=== PATIENT | female | born 1995 | race American Indian/Alaskan Native ===

== ENCOUNTER 2024-08-03 09:29 | Outpatient (REF) | payer MEDICAID, SELFPAY ==
--- OUTSIDE RECORDS SUMMARY | 2024-08-03 10:24 | XMS_ITS | Encounter Summary ---
Author Organization [employer] Address [address] [facility] [address] [place] [address] Care Team Providers Care Ophthalmic Aide Name Role Phone Omar Boyle MD Primary Care Prov ider Reason for Visit * Reason Onset Date Comments Appointment Request 06/14/2024 Encounter Details Date Type Department Care Team ([facility] st Contact Info) Description 06/14/2024 Telephone [facility] [address] [place] [address] Omar Boyle MD [address] [place] [address] Appointment Request Social History Tobacco Use Types Packs/Day Years Used Date Smoking Tobacco: Never Smokeless Tobacco: Never Alcohol Use Standard Drinks/Week Comments Never 0 (1 standard drink = 0.6 oz pur e alcohol) Depression Answer Date Recorded Patient Health Questionnaire-9 Score 1 05/19/2024 Patient Health Questionnaire-9 Score 1 05/19/2024 Last PHQ-9: Questionnaire Data Not on file 0 05/19/2024 Housing Stability Answer Date Recorded What is your housing situation today? I have espinoza chase 05/19/[address] you li ve. Do you have problems with any of the following? None of the above 05/19/2024 Food Insecurity Answer Date Recorded Within the past 12 months, y ou worried that your food would run out before you got money to buy more: Never True 05/19/2024 Within the past 12 months,th e food you bought just didn't last and you didn't have enough money to get more: Never True Transportation Answer Date Recorded In the past 12 months, has l ack of transportation kept you from medical appts, meetings, work or from getting things needed for daily living? No 05/19/2024 Utilities Answer Date Recorded In the past 12 months, has t he electric, gas, oil or water company threatened to shut off services in your home? No 05/19/2024 Depression Answer Date Recorded Patient Health Questionnaire-2 Score 0 05/19/2024 Internet Access Answer Date Recorded Internet Access Q1 Yes 05/19/2024 Internet Access Q2 Not on file 05/19/2024 Comments Unknown Sex and Gender Information Value Date Recorded Sex Assigned at Female 05/05/2024 3:49 PM EST Legal Sex Female 3:48 PM EST Gender Identity Female 05/05/2024 3:49 PM EST Sexual Orientation Don't know 05/19/2024 11 :54 AM EST documented as of this encounter Miscellaneous Notes * Telephone Encounter - Stephanie Reilly - 06/14/2024 10:00 AM EDT Tc from pt requesting appointment for PAP-SMEAR and request of medication for contraceptive pills. Please return call [phone] (equatorial guinean) documented in this encounter Plan of Treatment Upcoming Encounters Date Type Department Care Team (Late st Contact Info) Description 09/02/2024 2:30 PM EDT Office Visit [facility] [address] [place] [address] TarStacie levine, OD [address] [place] [address] documented as of this encounter Visit Diagnoses Not on filedocumented in this encounter Additional Health Concerns Assessment Noted Time PHQ-9 Depression Total Score: 1 05/19/19 1:57 PM EST documented as of this encounter Care Teams Ophthalmic Aide Relationship Specialty Start Date End Date Omar Boyle MD [address] [place] [address] PCP - General Internal Medicine 06/03/24 documented as of this encounter
--- OUTSIDE RECORDS SUMMARY | 2024-08-03 10:24 | XMS_ITS | Clinical Summary ---
Author Organization [employer] Address [address] [facility] [address] [place] [address] Care Team Providers Care Lawyer Criminal Name Role Phone Omar Boyle MD Primary Care Prov ider Allergies Active Allergy Reactions Criticality Noted Date Comments Penicillin G Rash Low 05/19/2024 Medications Ketotifen Fumarate 0.035 % solution Administer 1 drop into affected eye(s) 2 times daily. 10 mL 1 Active norgestimate-et hinyl estradiol (Estarylla) 0.25-35 MG-MCG tablet Take 1 tablet by mouth Once per day. 28 tablet 12 5 06/18/19 26 Active Active Problems Problem Noted Date Diagnosed Date Breast pain, right 07/19/2024 Assessment & Plan (07/19/2024 1:27 PM EDT): Will order a breast imaging, call with results Physical exam 07/19/2024 Assessment & Plan (07/19/2024 7:18 PM EDT): Unremarkable physical examination, patient complained of rigtht breast pain, will order a ultrasound, no nipple inversion or discharge Encounter for surveillance of contraceptive pill s 06/17/2024 Assessment & Plan (06/17/2024 11:30 AM EDT): Patient has been on OCP for over a year, wants to continue no major side effects reported, risk vs benefits discussed, will send rx Encounter for medical examination to establish c are 05/19/2024 Assessment & Plan (05/19/2024 2:56 PM EST): Last pcp visit September 2023 [place] [facility]: gastroenteritis may 2023 Hospitalization: - Pmhx: - Pshx: - All: Pnc Meds: OCP [id number] Menarche: 10yrs LMP: 04/04/24 Encounters Date Type Department Care Team Description 07/19/2024 1:00 PM EDT Office Visit [facility] [address] [place] [address] Omar Boyle MD Encounter for medical examination to establish care (Primary Dx); Breast pain, right; Physical exam 07/19/2024 Travel 07/08/2024 Patient Outreach [address] [address] Omar Boyle MD Pre-visit Planning (Pre visit planning unable to LVM ) 06/17/2024 11:15 AM EDT Office Visit [facility] [address] [place] [address] Omar Boyle MD Encounter for surveillance of contraceptive pills (Primary Dx) 06/17/2024 Travel 06/14/2024 Telephone [facility] [address] [place] [address] Omar Boyle MD Medication Question; Appointment Request 06/14/2024 Telephone [facility] [address] [place] [phone] Omar Boyle MD Appointment Request 06/03/2024 Telephone [facility] [address] [place] [address] Omar Boyle MD 05/19/2024 2:45 PM EST Telemedicine [facility] [address] [place] [address] Omar Boyle MD Encounter for medical examination to establish care (Primary Dx); Eye exam, routine 05/19/2024 Travel from Last 3 Months Family History Medical History Relation Name Comments No Known Problems Father Alzheimer's disease Mother Cancer Neg Hx Relation Name Status Comments Father Mother Social History Tobacco Use Types Packs/Day Years Used Date Smoking Tobacco: Never Smokeless Tobacco: Never Tobacco Cessation:Counseling Given: Not Answered Alcohol Use Standard Drinks/Week Comments Never 0 (1 standard drink = 0.6 oz pur e alcohol) Depression Answer Date Recorded Patient Health Questionnaire-9 Score 9 07/19/2024 Patient Health Questionnaire-9 Score 9 07/19/2024 Last PHQ-9: Questionnaire Data Not on file 0 07/19/2024 Housing Stability Answer Date Recorded What is [...] Answer Date Recorded Patient Health Questionnaire-2 Score 3 07/19/2024 Internet Access Answer Date Recorded Internet Access Q1 Yes 05/19/2024 Internet Access Q2 Not on file 05/19/2024 Comments Unknown Sex and Gender Information Value Date Recorded Sex Assigned at Female 05/05/2024 3:49 PM EST Legal Sex Female 3:48 PM EST Gender Identity Female 05/05/2024 3:49 PM EST Sexual Orientation Don't know 05/19/2024 11 :54 AM EST Last Filed Vital Signs Vital Sign Reading Time Taken Comments Blood Pressure 106/62 07/19/2024 12:59 PM EDT Pulse 78 07/19/2024 12:59 PM EDT Temperature 36.4 ??C (97.6 ??F) 07/19/2024 12:59 PM E DT Respiratory Rate 07/19/2024 12:59 PM EDT Oxygen Saturation 98% 07/19/2024 12:59 PM EDT Inhaled Oxygen Concentration - - Weight 71.8 kg (158 lb 3.2 oz) 07/19/2024 12:59 PM EDT Height 147.3 cm (4' 10 ) 07/19/2024 12:59 PM EDT Body Mass Index 33.06 07/19/2024 12:59 PM EDT Plan of Treatment Upcoming Encounters Date Type Department Care Team ([facility] st Contact Info) Description 09/02/2024 2:30 PM EDT Office Visit [facility] [address] [place] [address] Stacie Walker, OD [address] [place] [address] Health Maintenance Due Date Last Done Comments HIV Screening 1993 Family Planning (PISQ) 2008 Hepatitis C Screening 07/16/2011 DTaP/Tdap/Td Vaccines (1 - Tdap) 2012 Hepatitis B Vaccines (1 of 3 - 19+ 3-dose series) 2012 Pap Smear 2014 Cervical Cancer Screening 07/16/2023 HPV/Cotest 07/16/2023 COVID-19 Vaccine (1 - 2023-2 5 season) 2023 Influenza Vaccine (#1) 2023 SDOH Screening 05/19/2025 05/19/2024 Tobacco Screening 05/19/2025 05/19/2024 Alcohol/Substance Use Screening 07/19/2025 07/19/2024 Depression Screening 07/19/2025 07/19/2024, 07/19/2024 Zoster Vaccines (1 of 2) 07/16/2043 RSV Patients and Patients Aged 60 years or older (1 - 1-dose 75+ series) 2068 HIB Vaccines Aged Out No longer eligi ble based on patient's age to complete this topic HPV Vaccines Aged Out No longer eligi ble based on patient's age to complete this topic Hepatitis A Vaccines Aged Out No long er eligible based on patient's age to complete this topic IPV Vaccines Aged Out No longer eligi ble based on patient's age to complete this topic Meningococcal Vaccine Aged Out No jose manuel clementine eligible based on patient's age to complete this topic Pneumococcal Vaccine: Pediatrics (0 to 5 Years) and At-Risk Patients (6 to 49) Years) Aged Out No longer eligible b ased on patient's age to complete this topic RSV under 20 months Aged Out No longe r eligible based on patient's age to complete this topic Rotavirus Vaccines Aged Out No longer eligible based on patient's age to complete this topic [place] [address] LIMITED HS FULL Care Teams Lawyer Criminal Relationship Specialty Start Date End Date Omar Boyle MD [address] [place] [phone] PCP - General Internal Medicine 06/03/24
[2024-08-03 14:14] LABS: MANUAL DIFF FLAG NO
[2024-08-03 14:21] LABS: Basophils Percent Auto 0.3 % (0-2); Eosinophils Absolute Auto 0.2 X10*3/uL (0.0-0.4); Eosinophils Percent Auto 3.5 % (0-4); Hematocrit 37.2 % (37.0-47.0); Imm Gran Abs Auto 0.02 X10*3/uL (0.00-0.03); Imm Gran Pct Auto 0.3 % (0.0-0.4); Lymphocytes Absolute Auto 2.5 X10*3/uL (1.2-4.9); Lymphocytes Percent Auto 36.8 % (20-40); Mean Corpuscular HGB Conc 34.9 g/dl (31.0-35.0); Mean Corpuscular Hemoglobin 31.9 pg (27.0-33.0); Mean Corpuscular Volume 91.2 fL (80.0-98.0); Mean Platelet Volume 11.6 fL (9.4-12.3); Monocytes Absolute Auto 0.5 X10*3/uL (0.1-1.2); Monocytes Percent Auto 6.7 % (2-11); Neutrophils Absolute Auto 3.6 x10*3/uL (2.0-8.3); Neutrophils Percent Auto 52.4 % (45-73); Platelet Count 251 X10*3/uL (160-400); Red Blood Count 4.08 X10*6/uL (4.20-5.50); Red Cell Distribution Width 12.5 % (11.0-16.0); White Blood Count 6.8 X10*3/uL (4.8-10.8)
[2024-08-03 14:33] LABS: Estimated Average Glucose 100 mg/dL; Hemoglobin A1C 110.7311 umol/L; Hemoglobin A1c % 5.1 % (<6.0); Total Hemoglobin (HGBA1C) 3434.0532 umol/L
[2024-08-03 14:37] LABS: Alanine Aminotransferase 30 U/L (0-31); Albumin Level 4.2 g/dL (3.5-5.0); Alkaline Phosphatase 65 U/L (39-117); Anion Gap 11 (12-20); Aspartate Amino Transferase 43 U/L (5-31); Bilirubin Total 1.2 mg/dL (0.0-1.0); Blood Urea Nitrogen 13 mg/dL (9-16); Calcium 9.2 mg/dL (8.4-10.2); Carbon Dioxide 24 mmol/L (22-29); Chloride 108 mmol/L (96-108); Cholesterol 183 mg/dL (<200); Estimated Glomerular Filt Rate > 60; Glucose Random 80 mg/dL (60-115); HDL Cholesterol 45 mg/dL (>40); LDL Cholesterol Calculated 110 mg/dL (<100); Potassium 3.6 mmol/L (3.3-5.1); Sodium 139 mmol/L (135-145); Total Protein 7.3 g/dL (6.5-8.0); Triglycerides 142 mg/dL (<150)
[2024-08-03 14:49] LABS: TSH reflex Free T4 1.71 uIU/mL (0.32-4.0)
== END 2024-08-03 09:30 | disposition home or self-care (01) ==
LOC: HO.CHCLDS 09:29
PROVIDERS: Visit Provider Internal Medicine
DX: Z00.00 Encounter for general adult medical examination without abnormal findings (principal)
CPT/HCPCS: 36415; 80053; 80061; 83036; 84443; 85025

== ENCOUNTER 2024-11-21 10:33 | Outpatient (REF) | payer MEDICAID, SELFPAY ==
--- OUTSIDE RECORDS SUMMARY | 2024-11-21 11:44 | XMS_ITS | Encounter Summary ---
Author Organization [employer] Address [address] [facility] [address] [place] [address] Care Team Providers Care Steward/Stewardess Night Name Role Phone Omar Boyle MD Primary Care Prov ider Encounter Details Date Type Department Care Team ([facility] st Contact Info) Description 11/01/2024 Orders Only [facility] [address] [place] [address] ProviderAbhijit MD Social History Tobacco Use Types Packs/Day Years [...] AM EST documented as of this encounter Plan of Treatment Not on file documented as of this encounter Procedures Procedure Name Priority Date/Time Associated Diagnosis Comments US RIGHT BREAST LIMITED ADDITIONAL VIEWS Routine 08/25/2024 10:10 AM EDT documented in this encounter Results * US Breast Limited Right Additional Views (08/25/2024 10:10 AM EDT) Anatomical Region Laterality Modality Breast Right Ultrasound us Historical Provider MD [facility] US PROCEDURES Final R esult documented in this encounter Visit Diagnoses Not on filedocumented in this encounter Additional Health Concerns Assessment Noted Time PHQ-9 Depression Total Score: 9 07/20/19 1:45 PM EDT documented as of this encounter Care Teams Steward/Stewardess Night Relationship Specialty Start Date End Date Omar Boyle MD [address] [place] [id number] PCP - General Internal Medicine 06/03/24 documented as of this encounter
--- OUTSIDE RECORDS SUMMARY | 2024-11-21 11:44 | XMS_ITS | Clinical Summary ---
Author Organization [facility] Address [address] [place] [phone] Phone Care Team Providers Care Recreation Worker Name Role Phone Physician, No Pcp Primary Care Provider Unavaila ble Allergies Active Allergy Reactions Criticality Noted Date Comments Penicillins 02/11/2024 Medications No known medications Active Problems No known active problems Social History Tobacco Use Types Packs/Day Years Used Date Smoking Tobacco: Never Assessed Comments Unknown Sex and Gender Information Value Date Recorded Sex Assigned at Not on file Legal Sex Female 2:09 PM EST Gender Identity Not on file Sexual Orientation Not on file Obstetrics History Last Filed Vital Signs Vital Sign Reading Time Taken Comments Blood Pressure 118/79 02/11/2024 2:24 PM EST Pulse 98 02/11/2024 2:24 PM EST Temperature 37.2 C (99 F) 02/11/2024 2:24 PM EST Respiratory Rate 18 02/11/2024 2:24 PM EST Oxygen Saturation 99% 02/11/2024 2:24 PM EST Inhaled Oxygen Concentration - - Weight 73.9 kg (163 lb) 02/11/2024 2:24 PM EST Height 144 cm (4' 8.69 ) 02/11/2024 2:24 PM EST Body Mass Index 35.66 02/11/2024 2:24 PM EST Plan of Treatment Health Maintenance Due Date Last Done Comments DTaP,Tdap,and Td Vaccines (1 - Tdap) 2012 Hepatitis B Vaccines (1 of 3 - 19+ 3-dose series) 2012 Cervical Cancer Screening: P ap Smear 2014 COVID-19 Vaccine ( - 2023-2 5 season) 2023 HIV Screening 02/11/2024 Hepatitis C Screening 02/11/2024 Social Influencers of Health Screening 02/11/2024 Depression Screening 03/30/2024 Influenza Vaccine (#1) 2024 HIB Vaccines Aged Out No longer eligi [...] on patient's age to complete this topic MMR Vaccines Aged Out No longer eligi ble based on patient's age to complete this topic Meningococcal ACWY Vaccine Aged Out N o longer eligible based on patient's age to complete this topic Meningococcal B Vaccine Aged Out No l onger eligible based on patient's age to complete this topic Pneumococcal Vaccine: Pediat rics (0 to 5 Years) and At-Risk Patients (6 to 49 Years) Aged Out No longer eligible b ased on patient's age to complete this topic RSV Immunization Patients Un buddy 20 months Aged Out No longer eligible b ased on patient's age to complete this topic Varicella Vaccines Aged Out No longer eligible based on patient's age to complete this topic Insurance MEDICAID - [place] Care Teams Recreation Worker Relationship Specialty Start Date End Date Physician, No Pcp PCP - General 02/11/24
== END 2024-11-21 10:34 | disposition home or self-care (01) ==
LOC: HO.MAMMO 10:33
PROVIDERS: PCP Internal Medicine; Visit Provider Internal Medicine
DX: Z13.89 Encounter for screening for other disorder (principal)